=== PATIENT | male | born 1955 | race Caucasian/White ===

== ENCOUNTER 2016-09-19 04:57 | Observation (INO) | payer OTHER ==
--- NOTE | 2016-09-19 07:05 | EDM.PDOC ---
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 Past medical history: As per history of present illness and as reviewed below otherwise noncontributory. Surgical history: As per history of present illness and as reviewed below otherwise noncontributory. Social history: No reported history of drug or alcohol abuse. Family history: As per history of present illness and as reviewed below otherwise noncontributory. Physical exam: HEENT: Atraumatic, normocephalic, pupils reactive, negative for conjunctival pallor or scleral icterus, mucous membranes moist, throat clear, neck supple, nontender, trachea midline. Lungs: Clear to auscultation, breath sounds equal bilaterally, chest nontender. Heart: S1S2, regular, negative for clicks, rubs, or JVD. Abdomen: Soft, nondistended, nontender. Negative for masses or hepatosplenomegaly. Negative for costovertebral tenderness. Pelvis: Stable nontender. Genitourinary: Deferred. Rectal: Deferred. Extremities: Atraumatic, negative for cords or calf pain. Neurovascular unremarkable. Neuro: Awake, alert, oriented. Cranial nerves II through XII unremarkable. Cerebellum unremarkable. Motor and sensory unremarkable throughout. Exam nonfocal. Diagnostics: CBC CMP troponin PT INR EKG chest x-ray CT brain Therapeutics: Normal saline 1 L bolus O2 monitor Impression: #1 near syncope Definitive disposition and diagnosis as appropriate pending reevaluation and review of above. 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: IV/IO, Oxygen - Related Data Allergies Allergy/AdvReac Type Severity Reaction Status Date / Time hydrocodone Allergy Vomiting Verified 09/19/16 05:16 Home Meds: Home Meds Losartan/Hydrochlorothiazide [Losartan-HCTZ 100-25 MG] 1 mg PO DAILY 09/19/16 [ History] Tamsulosin [Flomax] 0.4 mg PO DAILY 09/19/16 [History] amLODIPine [Norvasc] 5 mg PO DAILY 09/19/16 [History] Past Medical History HEENT History: Reports: Impaired vision Cardiovascular History: Reports: Hypertension - Past Surgical History Other Male Surgeries/Procedures: bladder surgery Musculoskeletal Surgical History: Reports: Amputation, Other (see below) Other Musculoskeletal Surgeries/Procedures:: left finger; knee surgery Social & Family History - Family History Family Medical History: Noncontributory - Tobacco Use Smoking Status *Q: Never Smoker Second Hand Smoke Exposure: No - Caffeine Use Caffeine Use: Reports: None - Alcohol Use Days Per Week of Alcohol Use: 0 - Recreational Drug Use Recreational Drug Use: No ED ROS GENERAL - Review of Systems Review Of Systems: ROS reveals no pertinent complaints other than HPI. ED EXAM, GENERAL - Physical Exam Exam: See Below (See dictated) Course - Vital Signs Last Recorded V/S: Last Vital Signs Temp 35.9 C 09/19/16 05:16 Pulse 69 09/19/16 05:55 Resp 18 09/19/16 05:55 BP 119/71 09/19/16 05:55 Pulse Ox 98 09/19/16 05:55 - Orders/Labs/Meds Orders: Active Orders 24 hr Category Date Time Status EKG 12 Lead [EKG Documentation Completion] [RC] STAT Care 09/19/16 05:07 Active Chest 1V Frontal [CR] Stat Exams 09/19/16 05:05 Taken Head wo Cont [CT] Stat Exams 09/19/16 05:05 Taken Labs: Laboratory Tests 09/19/16 09/19/16 09/19/16 Range/Units 05:20 05:20 05:20 WBC 7.34 (4.0-11.0) K/uL RBC 5.12 (4.50-5.90) M/uL Hgb 15.5 (13.0-17.0) g/dL Hct 45.0 (38.0-50.0) % MCV 87.9 (80.0-98.0) fL MCH 30.3 (27.0-32.0) pg MCHC 34.4 (31.0-37.0) g/dL RDW Std Deviation 40.2 (28.0-62.0) fl RDW Coeff of Jasiel 13 (11.0-15.0) % Plt Count 211 (150-400) K/uL MPV 9.70 (7.40-12.00) fL Neut % (Auto) 72.9 (48.0-80.0) % Lymph % (Auto) 11.0 L (16.0-40.0) % [place] % (Auto) 14.2 (0.0-15.0) % Eos % (Auto) 1.5 (0.0-7.0) % Baso % (Auto) 0.4 (0.0-1.5) % Neut # (Auto) 5.4 (1.4-5.7) K/uL Lymph # (Auto) 0.8 (0.6-2.4) K/uL [place] # (Auto) 1.0 H (0.0-0.8) K/uL Eos # (Auto) 0.1 (0.0-0.7) K/uL Baso # (Auto) 0.0 (0.0-0.1) K/uL Nucleated RBC % 0.0 /100WBC Nucleated RBCs # 0 K/uL Sodium 138 (136-146) mmol/L Potassium 3.8 (3.5-5.1) mmol/L Chloride 102 (98-110) mmol/L Carbon Dioxide 22 (21-31) mmol/L BUN 16 (6.0-23.0) mg/dL Creatinine 1.4 (0.6-1.5) mg/dL Est Cr Clr Drug Dosing 54.29 mL/min Estimated GFR (MDRD) 51.7 ml/min Glucose 193 H (60-110) mg/dL Calcium 9.1 (8.8-10.8) mg/dL Total Bilirubin 1.0 (0.1-1.5) mg/dL AST 18 (5-40) IU/L ALT 20 (8-54) IU/L Alkaline Phosphatase 81 (40-150) Troponin I < 0.10 (0.0-0.29) NG/ML Total Protein 6.9 (6.0-8.0) g/dL Albumin 4.0 (3.4-4.8) g/dL Globulin 2.9 (2.0-3.5) g/dL Albumin/Globulin Ratio 1.4 (1.3-2.8) Departure - Departure Time of Disposition: 07:04 Disposition: Refer to Observation Condition: good Clinical Impression: Near syncope Forms: ED Department Discharge - My Orders Last 24 Hours: My Active Orders 09/19/16 05:05 Chest 1V Frontal [CR] Stat Head wo Cont [CT] Stat 09/19/16 05:07 EKG 12 Lead [EKG Documentation Completion] [RC] STAT - Assessment/Plan Last 24 Hours: My Active Orders 09/19/16 05:05 Chest 1V Frontal [CR] Stat Head wo Cont [CT] Stat 09/19/16 05:07 EKG 12 Lead [EKG Documentation Completion] [RC] STAT
[2016-09-19] MEDS ORDERED: Bisacodyl 5 MG Tab PO PRN (09:41)
[2016-09-19] MEDS ORDERED: Acetaminophen 325 MG Tab PO PRN (09:41)
[2016-09-19] MEDS ORDERED: Temazepam 15 MG Cap PO PRN (09:41)
[2016-09-19] MEDS ORDERED: Ondansetron 4 MG/2 ML SDV IVPUSH PRN (09:41)
[2016-09-19] MEDS ORDERED: Levofloxacin/Dextrose 5%-Water 500 MG in Premix Bag 1 BAG IV SCH (09:45)
--- NOTE | 2016-09-19 09:52 | PCM.HP ---
H&P History of Present Illness - General Date of Service: 09/19/16 Admit Problem/Dx: Admission Diagnosis/Problem Admission Diagnosis/Problem Near syncope Source of Information: Patient, Old records, Provider - History of Present Illness Initial Comments - Free Text/Narative: He was seen in the ED this am . He states that recently he has had a sore throat and cough. 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 He stopped and felt nauseated. He threw up and felt very dizzy. He had a blood pressure cuff in the cab of his truck and took his blood pressure. It was 88 mm Hg systolic. He has a history of HTN and takes Hyzaar. He also takes flomax. He sometimes skips his blood pressure medicine if his blood pressure is low. His last dose of Hyzaar was on Monday. He takes Flomax for prostate problems. He denies pain. He denies fever or diarrhea. - Related Data Allergies/Adverse Reactions: Allergies Allergy/AdvReac Type Severity Reaction Status Date / Time hydrocodone Allergy Vomiting Verified 09/19/16 05:16 Home Medications: Home Meds Losartan/Hydrochlorothiazide [Losartan-HCTZ 100-25 MG] 1 tab PO DAILY 09/19/16 [ History] Tamsulosin [Flomax] 0.4 mg PO PCDINNER 09/19/16 [History] amLODIPine [Norvasc] 5 mg PO DAILY 09/19/16 [History] Past Medical History HEENT History: Reports: Impaired vision Cardiovascular History: Reports: Hypertension. Denies: Bypass, CAD, Cardiomyopathy, Heart Failure, [place] Respiratory History: Reports: None. Denies: COPD Gastrointestinal History: Denies: Cirrhosis Genitourinary History: Reports: BPH, Urinary incontinence, Other (see below) ( He states that he has had problems with urinary frequency related to prostate trouble. He has noticed improvement with Flomax.) Musculoskeletal History: Reports: Amputation Neurological History: Denies: Alzheimers disease, CVA Endocrine/Metabolic History: Denies: Diabetes, type I, Diabetes, type II Oncologic (Cancer) History: Reports: None - Past Surgical History Male Surgical History: Reports: Circumcision Other Male Surgeries/Procedures: bladder surgery Musculoskeletal Surgical History: Reports: Amputation, Other (see below) Other Musculoskeletal Surgeries/Procedures:: left finger; knee surgery Social & Family History - Family History Family Medical History: Noncontributory - Tobacco Use Smoking Status *Q: Never Smoker Second Hand Smoke Exposure: No - Caffeine Use Caffeine Use: Reports: None - Alcohol Use Days Per Week of Alcohol Use: 0 - Recreational Drug Use Recreational Drug Use: No H&P Review of Systems - Review of Systems: Review Of Systems: See Below General: Denies: fever, chills HEENT: Reports: sore throat. Denies: dysphasia, sinus congestion Pulmonary: Reports: Other (He notes that he generally does not feel as well when he takes his blood pressure medicine. Sometimes he thinks it makes him tired.) Gastrointestinal: Denies: Abdominal pain Genitourinary: Denies: dysuria, hematuria Skin: Denies: cyanosis Psychiatric: Denies: confusion Exam - Exam Exam: See Below - Vital Signs Vital Signs: Last Vital Signs Temp 96.6 F 09/19/16 05:16 Pulse 90 09/19/16 07:30 Resp 16 09/19/16 07:30 BP 108/74 09/19/16 07:30 Pulse Ox 98 09/19/16 07:30 Orthostatic Blood Pressure [ 93/59 Standing] Orthostatic Blood Pressure [ 108/68 Sitting] Orthostatic Blood Pressure [ 114/70 Supine] Weight: 77.111 kg - Exam General: alert, oriented, sedated HEENT: EOMI Neck: supple, trachea midline Lungs: Clear to auscultation, Normal respiratory effort Cardiovascular: regular rate, regular rhythm Abdomen: soft, other (Mild tenderness along the costal margin bilaterally) Extremities: No: edema Neurological: cranial nerves intact, normal speech Neuro Extensive - Motor, Sensory, Reflexes: No: facial palsy (L), facial palsy ( R), hemiplagia (L), abnormal Romberg Psychiatric: No: agitated - Patient Data Result Diagrams: 09/19/16 05:20 09/19/16 05:20 *Q Meaningful Use (ADM) - VTE *Q VTE Criteria *Q: - Stroke *Q Stroke Criteria *Q: - AMI *Q AMI Criteria *Q: - Problem List (1) Near syncope SNOMED Code(s): 263011265 ICD Code: R55 - SYNCOPE AND COLLAPSE Status: Acute Current Visit: Yes Problem List Initiated/Reviewed/Updated: Yes Orders Last 24hrs: Active Orders 24 hr Category Date Time Status Oxygen Therapy [RC] PRN Care 09/19/16 09:41 Ordered VTE/DVT Education [RC] PER UNIT ROUTINE Care 09/19/16 09:41 Ordered Vital Signs [RC] Q4H Care 09/19/16 09:41 Ordered Regular Diet [DIET] Diet 09/19/16 Lunch Active CBC WITH AUTO DIFF [HEME] AM Lab 09/20/16 05:11 Ordered COMPREHENSIVE METABOLIC PN,CMP [CHEM] AM Lab 09/20/16 05:11 Ordered MAGNESIUM [CHEM] Routine Lab 09/19/16 09:41 Ordered STREP SCRN A RAPID W CULT CONF [RM] Stat Lab 09/19/16 09:39 Uncollected Acetaminophen [Tylenol] Med 09/19/16 09:41 Ordered 650 mg PO Q4H PRN Bisacodyl [Dulcolax] Med 09/19/16 09:41 Ordered 5 mg PO DAILY PRN Levofloxacin/Dextrose 5%-Water [Levaquin in D5W 500 MG/ Med 09/19/16 09:45 Active 100 ML] 500 mg Premix Bag 1 bag IV Q24H Ondansetron [Zofran] Med 09/19/16 09:41 Ordered 4 mg IVPUSH Q4H PRN Sodium Chloride 0.9% [Normal Saline] 1,000 ml Med 09/19/16 09:45 Active IV ASDIRECTED Tamsulosin [Flomax] Med 09/19/16 18:00 Active 0.4 mg PO PCDINNER Temazepam [Restoril] Med 09/19/16 09:41 Ordered 15 mg PO BEDTIME PRN Resuscitation Status Routine Resus Stat 09/19/16 09:41 Ordered Medication Orders Levofloxacin/Dextrose 500 mg/ (Premix) 100 mls @ 100 mls/hr IV Q24H [place] Sodium Chloride (Normal Saline) 1,000 mls @ 150 mls/hr IV ASDIRECTED [place] Tamsulosin HCl (Flomax) 0.4 mg PO PCDINNER [facility] Assessment/Plan Comment:: Will check a throat swab. I suspect his transient hypotension may have been multifactorial. It occurred after vomiting. It may be that he had a vagal reaction. Also contribute factors may be an acute illness and his use of antihypertensives. Will monitor on observation with telemetry. As he's had a recent cough productive of discolored sputum Will cover with Levaquin as per orders.
[2016-09-19] MEDS: Sodium Chloride 0.9% 1,000 ML IV SCH ×2 (10:09→18:11)
[2016-09-19] MEDS ORDERED: Tamsulosin 0.4 MG Cap.ER PO SCH (18:00)
[2016-09-19] MEDS ORDERED: Tamsulosin 0.4 MG Cap.ER PO ONE (18:24)
--- NOTE | 2016-09-19 19:44 | CR ---
EXAM DATE: 09/19/16 PATIENT'S AGE: 60 Patient: DEVON FIGUEROA Facility: [place], [place] Site . Site : 1955 Study: XRay Chest [id number]/27/2017 5:55:26 AM Ordering Physician: Doctor Mccain Final Report: INDICATION: LT ARM WEAKNESS, DIZZINESS/NEAR SYNCOPE TECHNIQUE: Chest 1 view. COMPARISON: 06/06/2014 FINDINGS: Cardiovascular and mediastinum: Heart size and vasculature are normal in caliber and appearance. Mediastinum is within normal limits. Lungs and pleural space: Lungs are clear. No sign of infiltrate or mass. No sign of pleural effusion. No pneumothorax. Bones and soft tissues: No significant findings. IMPRESSION: Unremarkable chest. Dictated by: Indio Ryder MD @ 09/19/2016 06:08:56 (Electronic Signature) Report Signed by Proxy and Original Signed Document filed in the Medical Record. MTDD
--- NOTE | 2016-09-19 19:45 | CT ---
EXAM DATE: 09/19/16 PATIENT'S AGE: 60 Patient: DEVON FIGUEROA Facility: [place], [place] Site . Site : 1955 Study: CT Head [id number]/27/2017 5:56:27 AM Ordering Physician: Doctor Mccain Final Report: INDICATION: DIZZINESS/NEAR SYNCOPE, LT SIDED WEAKNESS TECHNIQUE: CT Head without contrast. COMPARISON: None. FINDINGS: CSF spaces: Within normal limits for age. Brain parenchyma: The meza-white differentiation is normal. No sign of mass, hemorrhage, or midline shift. Skull base and calvarium: Mucosal thickening is present in the maxillary sinuses. The visualized orbits are grossly unremarkable. No skull fractures. IMPRESSION: Unremarkable noncontrast head CT. No sign of CVA or other significant finding. Dictated by: Indio Ryder MD @ 09/19/2016 06:16:47 (Electronic Signature) Report Signed by Proxy and Original Signed Document filed in the Medical Record. [facility]
[2016-09-20] MEDS: Sodium Chloride 0.9% 1,000 ML IV SCH ×2 (01:17→08:12)
[2016-09-20 05:47] LABS: CHLORIDE,CL 111 mmol/L (98-110); SODIUM,NA 140 mmol/L (136-146)
[2016-09-20] MEDS ORDERED: Levofloxacin 500 MG Tab PO SCH (10:00)
[2016-09-20 11:25] VITALS: BP 133/79
--- NOTE | 2016-09-20 12:15 | PCM.DCSUM1 ---
Discharge Summary - Hospital Course Brief History: he was admitted with a hypotensive episode associated with vomiting and presyncope. - Discharge Data Discharge Date: 09/20/16 Discharge Disposition: Home, Self-Care 01 Condition: Fair - Discharge Diagnosis/Problem(s) (1) Near syncope SNOMED Code(s): 545967328 ICD Code: R55 - SYNCOPE AND COLLAPSE Status: Acute Current Visit: Yes - Patient Summary/Data Hospital Course: His antihypertensives were held. He was given IVF hydration He is improved at discharge and is asymptomatic at discharge and he is normotensive. He has been started on levaquin po for bronchitis telemetry showed NSR with rare PVC reported. 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 stop hyzaar for now Keyshawn Saravia MD - Discharge Plan Home Medications: Home Meds Losartan/Hydrochlorothiazide [Losartan-HCTZ 100-25 MG] 1 tab PO DAILY 09/19/16 [ History] Tamsulosin [Flomax] 0.8 mg PO PCDINNER 09/19/16 [History] amLODIPine [Norvasc] 5 mg PO DAILY 09/19/16 [History] Forms: ED Department Discharge Referrals: PCP,None [Primary Care Provider] - - Patient Data Vitals - Most Recent: Last Vital Signs Temp 98.6 F 09/20/16 11:24 Pulse 75 09/20/16 11:24 Resp 16 09/20/16 11:24 BP 133/79 09/20/16 11:24 Pulse Ox 96 09/20/16 07:54 Orthostatic Blood Pressure [ 93/59 Standing] Orthostatic Blood Pressure [ 108/68 Sitting] Orthostatic Blood Pressure [ 114/70 Supine] Weight - Most Recent: 77.111 kg I&O - Last 24 hours: Intake & Output 09/19/16 09/20/16 09/20/16 22:59 06:59 14:59 Intake Total 425 1300 1000 Output Total 175 765 Balance 238 296 0948 Lab Results - Last 24 hrs: Laboratory Results - last 24 hr 09/20/16 09/20/16 Range/Units 05:00 05:00 WBC 8.49 (4.0-11.0) K/uL RBC 4.51 (4.50-5.90) M/uL Hgb 13.5 (13.0-17.0) g/dL Hct 40.0 (38.0-50.0) % MCV 88.7 (80.0-98.0) fL MCH 29.9 (27.0-32.0) pg MCHC 33.8 (31.0-37.0) g/dL RDW Std Deviation 40.8 (28.0-62.0) fl RDW Coeff of Jasiel 13 (11.0-15.0) % Plt Count 179 (150-400) K/uL MPV 9.60 (7.40-12.00) fL Add Manual Diff YES Neutrophils % (Manual) 66 (48.0-80.0) % Lymphocytes % (Manual) 24 (16.0-40.0) % Monocytes % (Manual) 7 (0.0-15.0) % Eosinophils % (Manual) 2 (0.0-7.0) % Basophils % (Manual) 1 (0.0-1.5) % Nucleated RBC % 0.0 /100WBC Absolute Seg Neuts 5.6 Lymphocytes # (Manual) 2.0 Monocytes # (Manual) 0.6 Eosinophils # (Manual) 0.2 Basophils # (Manual) 0 Nucleated RBCs # 0 K/uL Sodium 140 (136-146) mmol/L Potassium 3.5 (3.5-5.1) mmol/L Chloride 111 H (98-110) mmol/L Carbon Dioxide 21 (21-31) mmol/L BUN 20 (6.0-23.0) mg/dL Creatinine 0.9 (0.6-1.5) mg/dL Est Cr Clr Drug Dosing 84.44 mL/min Estimated GFR (MDRD) > 60.0 ml/min Glucose 93 (60-110) mg/dL Calcium 7.2 L (8.8-10.8) mg/dL Total Bilirubin 0.8 (0.1-1.5) mg/dL AST 15 (5-40) IU/L ALT 16 (8-54) IU/L Alkaline Phosphatase 63 (40-150) Total Protein 5.1 L (6.0-8.0) g/dL Albumin 3.2 L (3.4-4.8) g/dL Globulin 1.9 L (2.0-3.5) g/dL Albumin/Globulin Ratio 1.7 (1.3-2.8) EZRA Results - Last 24 hrs: Microbiology 09/19/16 10:00 Group A Streptococcus Rapid Screen - Final Throat NEGATIVE STREP A SCREEN Med Orders - Current: Current Medications Acetaminophen (Tylenol) 650 mg PO Q4H PRN PRN Reason: Pain (Mild 1-3)/fever Bisacodyl (Dulcolax) 5 mg PO DAILY PRN PRN Reason: Constipation Sodium Chloride (Normal Saline) 1,000 mls @ 150 mls/hr IV ASDIRECTED [facility] Last Admin: 09/20/16 08:12 Dose: 150 mls/hr Levofloxacin (Levaquin) 500 mg PO Q24H [facility] Last Admin: 09/20/16 10:55 Dose: 500 mg Ondansetron HCl (Zofran) 4 mg IVPUSH Q4H PRN PRN Reason: Nausea [facility]amsulosin [facility]) [facility] Temazepam (Restoril) 15 mg PO BEDTIME PRN PRN Reason: Sleep Discontinued Medications Levofloxacin/Dextrose 500 mg/ (Premix) 100 mls @ 100 mls/hr IV Q24H [facility] Last Admin: 09/19/16 10:00 Dose: 100 mls/hr Tamsulosin HCl (Flomax) [facility] Last Admin: 09/19/16 18:18 Dose: 0.4 mg Tamsulosin HCl (Flomax) 0.4 mg PO ONETIME ONE Stop: 09/19/16 18:25 Last Admin: 09/19/16 18:51 Dose: 0.4 mg *Q Meaningful Use (DIS) - VTE *Q VTE Criteria *Q: - Stroke *Q Stroke Criteria *Q: - AMI *Q AMI Criteria *Q:
[2016-09-20] MEDS ORDERED: Tamsulosin 0.4 MG Cap.ER PO SCH (18:00)
== END 2016-09-20 13:37 | disposition home or self-care (01) ==
LOC: MW.ED 04:57 → MW.MS 07:06
PROVIDERS: ADMIT Family Medicine; ATTEND Family Medicine
DX: R55 Syncope and collapse (principal); I10 Essential (primary) hypertension; N40.0 Benign prostatic hyperplasia without lower urinary tract symptoms; Z79.899 Other long term (current) drug therapy; Z88.8 Allergy status to other drugs, medicaments and biological substances; Z98.890 Other specified postprocedural states
CPT/HCPCS: 36415; 70450; 71010; 80053; 83735; 84484; 85025; 87081; 87880; 93005; 96361; 96365; 99285; A9270; G0378; J1956; J7040; 99283

== ENCOUNTER 2017-05-29 02:32 | Emergency (ER) | payer OTHER ==
[2017-05-29] MEDS ORDERED: Ondansetron 4 MG/2 ML SDV IVPUSH ONE (03:23)
[2017-05-29] MEDS ORDERED: Sodium Chloride 0.9% 1,000 ML IV ONE (03:23)
--- NOTE | 2017-05-29 03:25 | EDM.PDOC ---
ED HPI GENERAL MEDICAL PROBLEM - General Chief Complaint: Abdominal Pain Stated Complaint: UPPER ABDOMINAL PAIN Time Seen by Provider: 05/29/17 03:24 Source of Information: Reports: Patient - History of Present Illness INITIAL COMMENTS - FREE TEXT/NARRATIVE: HISTORY AND PHYSICAL: History of present illness: []Patient presents with abdominal pain 4 out of 10 nonradiating to the upper quadrants he has had some discomfort in the lower quadrants on exam he is tender in right and left lower quadrant as well as both upper quadrant slight focus in the right lower quadrant No fever nausea vomiting chills sweats last bowel movement yesterday slightly on the constipated side per patient no blood in her stool no mucus no chest pain shortness breath headache dizziness palpitation about a urine symptoms Family history of colon cancer his mother was diagnosed at 50 years of age patient is on not had a colonoscopy Review of systems: As per history of present illness and below otherwise all systems reviewed and negative. Past medical history: As per history of present illness and as reviewed below otherwise noncontributory. Surgical history: As per history of present illness and as reviewed below otherwise noncontributory. Social history: No reported history of drug or alcohol abuse. Family history: As per history of present illness and as reviewed below otherwise noncontributory. Physical exam: HEENT: Atraumatic, normocephalic, pupils reactive, negative for conjunctival pallor or scleral icterus, mucous membranes moist, throat clear, neck supple, nontender, trachea midline. Lungs: Clear to auscultation, breath sounds equal bilaterally, chest nontender. Heart: S1S2, regular, negative for clicks, rubs, or JVD. Abdomen: Soft, nondistended, diffusely tender slight focus in right lower quadrant. Negative for masses or hepatosplenomegaly. Negative for costovertebral tenderness. Pelvis: Stable nontender. Genitourinary: Deferred. Rectal: Deferred. Extremities: Atraumatic, negative for cords or calf pain. Neurovascular unremarkable. Neuro: Awake, alert, oriented. Cranial nerves II through XII unremarkable. Cerebellum unremarkable. Motor and sensory unremarkable throughout. Exam nonfocal. Diagnostics: []Lab as below EKG Chest [address] abdomen pelvis with contrast Therapeutics: []1 L normal saline bolus Zofran 8 mg IV Reglan 10 mg IV Reglan MiraLAX Gas-X She has follow-up with Dr. Restrepo at [facility] recommend he gets referred for colonoscopy return if symptoms persist or worsen Impression: [] abdominal pain Some gas trapping on Definitive disposition and diagnosis as appropriate pending reevaluation and review of above. Upper Abdominal Pain Score (Numeric/FACES): 5 - Related Data Allergies Allergy/AdvReac Type Severity Reaction Status Date / Time hydrocodone Allergy Vomiting Verified 09/19/16 05:16 Home Meds: Home Meds amLODIPine [Norvasc] 5 mg PO DAILY 09/19/16 [History] Losartan/Hydrochlorothiazide [Losartan-HCTZ 100-25 MG] 1 tab PO DAILY 05/29/17 [ History] Tamsulosin [Flomax] 0.4 mg PO PCBREAKFAST 05/29/17 [History] Past Medical History HEENT History: Reports: Impaired Vision Cardiovascular History: Reports: Hypertension Respiratory History: Reports: None Genitourinary History: Reports: BPH, Urinary Incontinence, Other (See Below) Musculoskeletal History: Reports: Amputation Oncologic (Cancer) History: Reports: None - Past Surgical History Musculoskeletal Surgical History: Reports: Amputation, Other (See Below) Social & Family History - Family History Family Medical History: Noncontributory - Tobacco Use Smoking Status *Q: Never Smoker Second Hand Smoke Exposure: No - Caffeine Use Caffeine Use: Reports: Other - Alcohol Use Days Per Week of Alcohol Use: 0 - Recreational Drug Use Recreational Drug Use: No ED ROS GENERAL - Review of Systems Review Of Systems: ROS reveals no pertinent complaints other than HPI. ED EXAM, GENERAL - Physical Exam Exam: See Below Course - Vital Signs Last Recorded V/S: Last Vital Signs Temp 97.8 F 05/29/17 03:16 Pulse 65 05/29/17 03:16 Resp 18 05/29/17 03:16 BP 133/73 05/29/17 03:16 Pulse Ox 97 05/29/17 03:16 - Orders/Labs/Meds Orders: Active Orders 24 hr Category Date Time Status EKG Documentation Completion [RC] STAT Care 05/29/17 03:25 Active Abdomen Pelvis w Cont [CT] Stat Exams 05/29/17 03:25 Taken Chest 1V Frontal [CR] Stat Exams 05/29/17 03:25 Taken Labs: Laboratory Tests 05/29/17 05/29/17 05/29/17 Range/Units 03:25 03:25 03:25 WBC 6.74 (4.0-11.0) K/uL RBC 4.79 (4.50-5.90) M/uL Hgb 14.8 (13.0-17.0) g/dL Hct 42.4 (38.0-50.0) % MCV 88.5 (80.0-98.0) fL MCH 30.9 (27.0-32.0) pg MCHC 34.9 (31.0-37.0) g/dL RDW Std Deviation 40.0 (28.0-62.0) fl RDW Coeff of Jasiel 13 (11.0-15.0) % Plt Count 207 (150-400) K/uL MPV 9.60 (7.40-12.00) fL Neut % (Auto) 63.6 (48.0-80.0) % Lymph % (Auto) 22.4 (16.0-40.0) % [place] % (Auto) 11.9 (0.0-15.0) % Eos % (Auto) 1.8 (0.0-7.0) % Baso % (Auto) 0.3 (0.0-1.5) % Neut # (Auto) 4.3 (1.4-5.7) K/uL Lymph # (Auto) 1.5 (0.6-2.4) K/uL [place] # (Auto) 0.8 (0.0-0.8) K/uL Eos # (Auto) 0.1 (0.0-0.7) K/uL Baso # (Auto) 0.0 (0.0-0.1) K/uL Nucleated RBC % 0.0 /100WBC Nucleated RBCs # 0 K/uL Sodium 140 (136-146) mmol/L Potassium 3.7 (3.5-5.1) mmol/L Chloride 112 H (98-110) mmol/L Carbon Dioxide 21 (21-31) mmol/L BUN 17 (6.0-23.0) mg/dL Creatinine 0.9 (0.6-1.5) mg/dL Est Cr Clr Drug Dosing 83.39 mL/min Estimated GFR (MDRD) > 60.0 ml/min Glucose 85 (60-110) mg/dL Calcium 8.6 L (8.8-10.8) mg/dL Total Bilirubin 1.4 (0.1-1.5) mg/dL AST 17 (5-40) IU/L ALT 14 (8-54) IU/L Alkaline Phosphatase 92 (40-150) Troponin I < 0.10 (0.0-0.29) NG/ML Total Protein 6.2 (6.0-8.0) g/dL Albumin 3.7 (3.4-4.8) g/dL Globulin 2.5 (2.0-3.5) g/dL Albumin/Globulin Ratio 1.5 (1.3-2.8) Amylase 45 (10-90) U/L Lipase 23 (7-80) U/L Urine Color YELLOW Urine Appearance CLEAR Urine pH 6.0 (5.0-8.0) Ur Specific [place] 1.025 (1.001-1.035) Urine Protein NEGATIVE (NEGATIVE) mg/dL Urine Glucose (UA) NEGATIVE (NEGATIVE) mg/dL Urine Ketones 40 H (NEGATIVE) mg/dL Urine Occult Blood NEGATIVE (NEGATIVE) Urine Nitrite NEGATIVE (NEGATIVE) Urine Bilirubin SMALL H (NEGATIVE) Urine Ictotest NEGATIVE Urine Urobilinogen 0.2 (<2.0) EU/dL Ur Leukocyte Esterase NEGATIVE (NEGATIVE) Urine RBC 0-1 (0-2/HPF) Urine WBC 1-3 (0-5/HPF) Ur Epithelial Cells RARE (NONE-FEW) Urine Bacteria FEW (NEGATIVE) Urine Mucus FEW (NONE-MOD) Meds: Medications Discontinued Medications Generic Name Dose Route Start Last Admin Trade Name Efrenq PRN Reason Stop Dose Admin Sodium Chloride 1,000 mls @ 999 mls/hr 05/29/17 03:23 05/29/17 03:51 Normal Saline IV 05/29/17 04:23 999 mls/hr STAT ONE Administration Iopamidol 100 ml 05/29/17 04:58 05/29/17 04:58 Isovue Multipack-370 (76%) IVPUSH 05/29/17 04:59 100 ml ONETIME STA Administration Metoclopramide HCl 10 mg 05/29/17 06:03 Reglan IV 05/29/17 06:04 ONETIME ONE Ondansetron HCl 8 mg 05/29/17 03:23 05/29/17 03:51 Zofran IVPUSH 05/29/17 03:24 8 mg ONETIME ONE Administration Departure - Departure Time of Disposition: 06:17 Disposition: Home, Self-Care 01 Condition: Good Clinical Impression: Abdominal pain - Discharge Information Referrals: Favio Puente MD [Primary Care Provider] - Forms: ED Department Discharge Additional Instructions: Gas-X 4 times daily MiraLAX 1 packet daily Medication as prescribed Return if symptoms persist or worsen or new concerning symptoms develop Recommend follow-up as scheduled with Dr. Restrepo on Monday, consider colonoscopy with Dr. Restrepo your new Primary care physician [address] [address] The following information is given to patients seen in the emergency department who are being discharged to home. This information is to outline your options for follow-up care. We provide all patients seen in our emergency department with a follow-up referral. The need for follow-up, as well as the timing and circumstances, are variable depending upon the specifics of your emergency department visit. If you don't have a primary care physician on staff, we will provide you with a referral. We always advise you to contact your personal physician following an emergency department visit to inform them of the circumstance of the visit and for follow-up with them and/or the need for any referrals to a consulting specialist. The emergency department will also refer you to a specialist when appropriate. This referral assures that you have the opportunity for follow-up care with a specialist. All of these measure are taken in an effort to provide you with optimal care, which includes your follow-up. Under all circumstances we always encourage you to contact your private physician who remains a resource for coordinating your care. When calling for follow-up care, please make the office aware that this follow-up is from your recent emergency room visit. If for any reason you are refused follow-up, please contact the [facility] emergency department at and asked to speak to the emergency department charge nurse. - My Orders Last 24 Hours: My Active Orders 05/29/17 03:25 EKG Documentation Completion [RC] STAT Abdomen Pelvis w Cont [CT] Stat Chest 1V Frontal [CR] Stat - Assessment/Plan Last 24 Hours: My Active Orders 05/29/17 03:25 EKG Documentation Completion [RC] STAT Abdomen Pelvis w Cont [CT] Stat Chest 1V Frontal [CR] Stat
[2017-05-29 04:00] LABS: CHLORIDE,CL 112 mmol/L (98-110); SODIUM,NA 140 mmol/L (136-146)
[2017-05-29] MEDS ORDERED: Iopamidol 755 MG/ML 500 ML Multipack Bottle IVPUSH STA (04:58)
[2017-05-29] MEDS ORDERED: Metoclopramide 10 MG/2 ML SDV IV ONE (06:03)
[2017-05-29 06:59] VITALS: BP 132/77
--- NOTE | 2017-05-29 17:13 | CR ---
EXAM DATE: 05/29/17 PATIENT'S AGE: 61 Patient: DEVON FIGUEROA Facility: [place], [place] Site . Site : 1955 Study: XRay Chest [id number]/4/2017 4:55:58 AM Ordering Physician: Tyesha Schuster Final Report: INDICATION: Chest pain. TECHNIQUE: Chest radiograph 1 view COMPARISON: 09/19/2016. FINDINGS: Cardiovascular and mediastinum: The heart silhouette is normal in size and morphology. The mediastinum is normal in appearance. Lungs and pleural spaces: Both lungs are unremarkable in appearance. No sign of pleural effusion seen. No pneumothorax is identified. Bones and soft tissues: No significant findings. IMPRESSION: 1. No acute cardiopulmonary disease is seen. Dictated by Keyshawn Funk MD @ 05/29/2017 5:15:12 AM Dictated by: Keyshawn Funk MD @ 05/29/2017 05:15:19 (Electronic Signature) Report Signed by Proxy. [facility] HOSPITALDevin
--- NOTE | 2017-05-29 17:14 | CT ---
EXAM DATE: 05/29/17 PATIENT'S AGE: 61 Patient: DEVON FIGUEROA Facility: [place], [place] Site . Site : 1955 Study: CT Abdomen/Pelvis [id number]/4/2017 4:56:34 AM Ordering Physician: Tyesha Schuster Final Report: INDICATION: Bilateral upper abdominal pain. TECHNIQUE: CT abdomen and pelvis acquired with i.v. 100 mL Omnipaque 350. Coronal and sagittal reformats were obtained. IV Contrast: Isovue 370 100 mL COMPARISON: None FINDINGS: Lower chest: Unremarkable. Liver: Unremarkable. Spleen: Unremarkable. Pancreas: Unremarkable. Gallbladder and bile ducts: Unremarkable. Kidneys: Bilateral parapelvic simple renal cysts. Symmetric renal enhancement. No hydronephrosis. Adrenal glands: Unremarkable. GI tract: Unremarkable. The appendix is normal in appearance and size. Vascular: Unremarkable. Lymph nodes: Unremarkable. Miscellaneous: Unremarkable. No pneumoperitoneum is seen. No significant ascites is noted. Tiny fat containing umbilical hernia defect. Bilateral fat containing inguinal hernia defects. Pelvic Organs: Prostate gland enlarged. Likely mild degree of bladder wall thickening, secondary to chronic bladder outlet obstruction. Bones: Unremarkable for age. IMPRESSION: 1. Bilateral parapelvic renal cysts. No suspicious renal mass or hydronephrosis. 2. Normal appendix. 3. Enlarged prostate gland. 4. Fact containing bilateral inguinal hernia defects and small umbilical hernia defect containing fat. 5. No bowel obstruction. 6. No clear etiology identified for patient`s clinical symptoms of bilateral upper abdominal pain. Dictated by Keyshawn Funk MD @ 05/29/2017 5:22:35 AM Dictated by: Keyshawn Funk MD @ 05/29/2017 05:22:40 (Electronic Signature) Report Signed by Proxy. [facility] CENTERDevin
== END 2017-05-29 06:53 | disposition home or self-care (01) ==
LOC: MW.ED 02:32
DX: R10.11 Right upper quadrant pain (principal); R10.12 Left upper quadrant pain; R10.813 Right lower quadrant abdominal tenderness; I10 Essential (primary) hypertension; Z88.5 Allergy status to narcotic agent; Z79.899 Other long term (current) drug therapy
CPT/HCPCS: 71010; 74177; 80053; 81001; 82150; 83690; 84484; 85025; 93005; 96361; 96374; 96375; 99284; J2405; J2765; J7040; Q9967; 99283

== ENCOUNTER 2017-07-06 09:42 | Day surgery (SDC) | payer OTHER ==
[~2017-07-06 09:42] MED LIST: Lactated Ringers 1,000 ML IV SCH
--- NOTE | 2017-07-06 10:29 | PCM.PREANE ---
Preanesthetic Assessment - Anesthesia/Transfusion/Family Hx Anesthesia History: Prior Anesthesia Without Reaction Family History of Anesthesia Reaction: No Transfusion History: No Prior Transfusion(s) Intubation History: Unknown - Review of Systems General: No Symptoms Pulmonary: No Symptoms Cardiovascular: No Symptoms Gastrointestinal: Constipation Neurological: No Symptoms Other: Reports: None - Physical Assessment Height: 1.73 m Weight: 82.554 kg ASA Class: 2 Mental Status: Alert & Oriented x3 Airway Class: Mallampati = 2 Dentition: Reports: Normal Dentition, [place](s) (steal plate on the back of front upper incisor (left)), Broken Tooth/Teeth (bonded front upper incisor ( right)) Thyro-Mental Finger Breadths: 3 Mouth Opening Finger Breadths: 3 ROM/Head Extension: Full Lungs: Clear to Auscultation, Normal Respiratory Effort Cardiovascular: Regular Rate, Regular Rhythm - Allergies Allergies/Adverse Reactions: Allergies Allergy/AdvReac Type Severity Reaction Status Date / Time hydrocodone Allergy Vomiting Verified 09/19/16 05:16 - Blood Blood Available: No - Anesthesia Plan Pre-Op Medication Ordered: None - Acknowledgements Anesthesia Type Planned: MAC Pt an Appropriate Candidate for the Planned Anesthesia: Yes Alternatives and Risks of Anesthesia Discussed w Pt/Guardian: Yes Pt/Guardian Understands and Agrees with Anesthesia Plan: Yes PreAnesthesia Questionnaire HEENT History: Cardiovascular History: Reports: Hypertension Respiratory History: Reports: None Gastrointestinal History: Reports: Other (See Below) Other Gastrointestinal History: occasional heartburn Genitourinary History: Reports: BPH, Other (See Below) Musculoskeletal History: 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 of redundant tissue) Male Surgical History: Other Male Surgeries/Procedures: bladder surgery Musculoskeletal Surgical History: Reports: Arthroscopic Knee (bilat. arthroscopic knee surgeries), Other (See Below) Other Musculoskeletal Surgeries/Procedures:: left finger; knee surgery - SUBSTANCE USE Smoking Status *Q: Never Smoker Second Hand Smoke Exposure: No Days Per Week of Alcohol Use: 0 Recreational Drug Use History: No - HOME MEDS Home Medications: Home Meds amLODIPine [Norvasc] 5 mg PO DAILY 09/19/16 [History] Losartan/Hydrochlorothiazide [Losartan-HCTZ 100-25 MG] 1 tab PO DAILY 05/29/17 [ History] Tamsulosin [Flomax] 0.4 mg PO PCBREAKFAST 05/29/17 [History] Polyethylene Glycol 3350 [Miralax] 1 dose PO ASDIRECTED PRN 07/04/17 [History] - CURRENT (IN HOUSE) MEDS Current Meds: Current Medications Lactated Ringer's (Ringers, Lactated) 1,000 mls @ 125 mls/hr IV ASDIRECTED [place]
[2017-07-06] MEDS ORDERED: Lidocaine 2% 5 ML SDV ONE ×2 (11:25→11:26)
[2017-07-06] MEDS ORDERED: Propofol 200 MG/20 ML SDV ONE (11:26)
--- NOTE | 2017-07-06 12:19 | PCM.OPNOTE ---
- General Post-Op/Procedure Note Date of Surgery/Procedure: 07/06/17 Operative Procedure(s): colonoscopy w bx Findings: see dict [id number] Pre Op Diagnosis: change in bowel habits and abd pain Post-Op Diagnosis: colon polyp Anesthesia Technique: Moderate Sedation Primary Surgeon: Samson Brandon Pathology: 2 mm sessile polyp at 1.2 m when scope went in Complications: None Condition: Good Free Text/Narrative:: Intake & Output 07/05/17 07/06/17 07/06/17 22:59 06:59 14:59 Intake Total 900 Balance 900
[2017-07-06 14:03] VITALS: BP 113/71
--- NOTE | 2017-07-06 18:04 | OR ---
SURGEON: Samson Brandon MD DATE OF PROCEDURE: 07/06/2017 PREOPERATIVE DIAGNOSIS: Change in bowel habit and abdominal pain. POSTOPERATIVE DIAGNOSIS: Colon polyp. PROCEDURE PERFORMED: Colonoscopy with biopsy. PROCEDURE IN DETAIL: The patient was taken to the endoscopy room. A time out was called, patient identified, and procedure identified. Diprivan was then administrated. Patient went from awake to sleep, hearing doctor talking or door closing is normal. Perineum inspection and digital examination were then performed. A well- lubricated colonoscope was gently inserted through the rectum, advanced past the rectosigmoid junction, the descending colon, splenic flexure, transverse colon, hepatic flexure, ascending colon, arrived to the cecum. Cecum was identified as dictated in the finding. Then the scope was carefully withdrawn while attention was paid to the mucosal surface for any abnormality. Air will be sucked out during the scope withdrawal. At the rectum, retroflexed to examine any rectal diseases, fistula or hemorrhoids. During mucosal examination, abnormality or polyp was noted; picture taken and biopsy performed. Patient tolerated procedure well. There were no intraoperative complications, and Dr. Brandon was present throughout the whole procedure. FINDINGS: 1. The patient is easily sedated with [employer] and Diprivan. The patient is soundly snoring. 2. Bowel prep was average with moderate amount of liquid stool coating the mucosa. There are some moderate amount, not a lot and no semi-formed stool. Colon is rather straightforward. Cecum indicated by ileocecal fold, one-to-one indentation, light mittens, appendix orifice, mucosa examined upon scope pulling out with constant irrigation. The patient does not have diverticulosis, mass, growth, inflammation, stricture, ulceration, bleeding, AV malformation. The patient has a tiny 2 mm sessile polyp at distance 1.2 mm when the scope going in right at the hepatic flexure, was removed with cold biopsy forceps. The patient has mild internal hemorrhoids, no external hemorrhoids present. The patient would benefit from repeat colonoscopy 10 years from today or if the pathology of the polyp were clinically indicated otherwise. RAHEL / ZOLTAN /[id number]
== END 2017-07-06 12:45 | disposition home or self-care (01) ==
LOC: MW.SDS 09:42
PROVIDERS: ATTEND Surgery
DX: D12.3 Benign neoplasm of transverse colon (principal); K64.8 Other hemorrhoids; M19.90 Unspecified osteoarthritis, unspecified site; I10 Essential (primary) hypertension; N40.1 Benign prostatic hyperplasia with lower urinary tract symptoms; R39.15 Urgency of urination; Z80.0 Family history of malignant neoplasm of digestive organs; Z79.899 Other long term (current) drug therapy; Z88.5 Allergy status to narcotic agent; Z98.890 Other specified postprocedural states
CPT/HCPCS: 45380; J7120; 00812; 88305; J2704